=== PATIENT | female | born 1970 | race Two or more races ===

== ENCOUNTER 2019-09-10 16:01 | Emergency (ER) | payer SELFPAY ==
[~2019-09-10] VITALS: Ht 157.5 cm; Wt 70.0 kg
--- NOTE | 2019-09-10 16:25 | PHYS DOC ---
Adult General Chief Complaint Chief Complaint: ABDOMINAL PAIN [facility] HPI Patient is a 49 year old female who presents with left sided abdominal pain that has been ongoing for several days. The patient reports a subjective fever. The patient denies nausea, vomiting, diarrhea. Denies any history of diverticulitis, or denies any history of major abdominal problems or surgeries. Complete ROS were reviewed and found to be within normal limits, except as documented in the HPI (SOILA BUSH APRN) Current Medications Current Medications Current Medications Medications (Trade) Dose Ordered Sig/Martin Start Time Stop Time Status Last Admin Dose Admin Fentanyl Citrate (Fentanyl 2ml Vial) 50 mcg 1X ONCE 09/10/19 16:30 09/10/19 16:31 DC 09/10/19 17:20 50 MCG Info (CONTRAST GIVEN -- Rx MONITORING) 1 each PRN DAILY PRN 09/10/19 17:00 09/10/19 19:48 DC Iohexol (Omnipaque 300 Mg/ml) 60 ml 1X ONCE 09/10/19 17:00 09/10/19 17:01 DC 09/10/19 17:12 60 ML Ondansetron HCl (Zofran) 4 mg 1X ONCE 09/10/19 16:30 09/10/19 16:31 DC 09/10/19 17:20 4 MG Sodium Chloride 1,000 ml @ 1,000 mls/hr 1X ONCE 09/10/19 16:30 09/10/19 17:29 DC 09/10/19 17:20 1,000 MLS/HR (JENNIFER COOLEY MD) Allergies Allergies Allergies Coded Allergies Type Severity Reaction Last Updated Verified No Known Drug Allergies 09/10/19 No (JENNIFER COOLEY MD) Physical Exam Physical Exam Constitutional: Well developed, well nourished, no acute distress, non-toxic appearance. [] HENT: Normocephalic, atraumatic, bilateral external ears normal, oropharynx moist, no oral exudates, nose normal. [] Eyes: PERRLA, EOMI, conjunctiva normal, no discharge. [] Neck: Normal range of motion, no tenderness, supple, no stridor. [] Cardiovascular:Heart rate regular rhythm, no murmur [] Lungs & Thorax: Bilateral breath sounds clear to auscultation [] Abdomen: Bowel sounds normal, soft, left sided abdominal tenderness of palpation, no guarding, no masses, no pulsatile masses. [] Skin: Warm, dry, no erythema, no rash. [] Neurologic: Alert and oriented X 3, normal motor function, normal sensory function, no focal deficits noted. [] Psychologic: Affect normal, judgement normal, mood normal. [] (SOILA BUSH APRN) Current Patient Data Vital Signs Vital Signs Date Time Temp Pulse Resp B/P (MAP) Pulse Ox O2 Delivery O2 Flow Rate FiO2 09/10/19 19:24 56 14 121/70 (87) 99 Room Air 09/10/19 16:27 98.1 98.1 (JENNIFER COOLEY MD) Lab Values Laboratory Tests Test 09/10/19 16:16 09/10/19 16:22 09/10/19 16:27 Urine Collection Type Unknown Urine Color Yellow Urine Clarity Clear Urine pH 5.0 Urine Specific [place] 1.015 Urine Protein Negative mg/dL (NEG-TRACE) Urine Glucose (UA) Negative mg/dL (NEG) Urine Ketones (Stick) Negative mg/dL (NEG) Urine Blood Moderate (NEG) Urine Nitrite Negative (NEG) Urine Bilirubin Negative (NEG) Urine Urobilinogen Dipstick 0.2 mg/dL (0.2 mg/dL) Urine Leukocyte Esterase Negative (NEG) Urine RBC Occ /HPF (0-2) Urine WBC Occ /HPF (0-4) Urine Bacteria 0 /HPF (0-FEW) Urine Mucus Slight /LPF POC Urine HCG, Qualitative Hcg negative (Negative) White Blood Count 9.7 x10^3/uL (4.0-11.0) Red Blood Count 4.33 x10^6/uL (3.50-5.40) Hemoglobin 11.7 g/dL (12.0-15.5) L Hematocrit 35.4 % (36.0-47.0) L Mean Corpuscular Volume 82 fL (79-100) Mean Corpuscular Hemoglobin 27 pg (25-35) Mean Corpuscular Hemoglobin Concent 33 g/dL (31-37) Red Cell Distribution Width 13.4 % (11.5-14.5) Platelet Count 265 x10^3/uL (140-400) Neutrophils (%) (Auto) 46 % (31-73) Lymphocytes (%) (Auto) 39 % (24-48) Monocytes (%) (Auto) 7 % (0-9) Eosinophils (%) (Auto) 7 % (0-3) H Basophils (%) (Auto) 2 % (0-3) Neutrophils # (Auto) 4.4 x10^3/uL (1.8-7.7) Lymphocytes # (Auto) 3.8 x10^3/uL (1.0-4.8) Monocytes # (Auto) 0.6 x10^3/uL (0.0-1.1) Eosinophils # (Auto) 0.7 x10^3/uL (0.0-0.7) Basophils # (Auto) 0.2 x10^3/uL (0.0-0.2) Sodium Level 142 mmol/L (136-145) Potassium Level 4.0 mmol/L (3.5-5.1) Chloride Level 105 mmol/L (98-107) Carbon Dioxide Level 27 mmol/L (21-32) Anion Gap 10 (6-14) Blood Urea Nitrogen 23 mg/dL (7-20) H Creatinine 1.1 mg/dL (0.6-1.0) H Estimated GFR (Cockcroft-Gault) 52.8 BUN/Creatinine Ratio 21 (6-20) H Glucose Level 84 mg/dL (70-99) Calcium Level 9.1 mg/dL (8.5-10.1) Total Bilirubin 0.2 mg/dL (0.2-1.0) Aspartate Amino Transferase (AST) 19 U/L (15-37) Alanine Aminotransferase (ALT) 21 U/L (14-59) Alkaline Phosphatase 95 U/L (46-116) Total Protein 7.7 g/dL (6.4-8.2) Albumin 3.7 g/dL (3.4-5.0) Albumin/Globulin Ratio 0.9 (1.0-1.7) L Lipase 179 U/L (73-393) Laboratory Tests 09/10/19 16:27 Laboratory Tests 09/10/19 16:27 (JENNIFER COOLEY MD) Lab Values Laboratory Tests Test 09/10/19 16:16 09/10/19 16:22 09/10/19 16:27 Urine Collection Type Unknown Urine Color Yellow Urine Clarity Clear Urine pH 5.0 Urine Specific [place] 1.015 Urine Protein Negative mg/dL (NEG-TRACE) Urine Glucose (UA) Negative mg/dL (NEG) Urine Ketones (Stick) Negative mg/dL (NEG) Urine Blood Moderate (NEG) Urine Nitrite Negative (NEG) Urine Bilirubin Negative (NEG) Urine Urobilinogen Dipstick 0.2 mg/dL (0.2 mg/dL) Urine Leukocyte Esterase Negative (NEG) Urine RBC Occ /HPF (0-2) Urine WBC Occ /HPF (0-4) Urine Bacteria 0 /HPF (0-FEW) Urine Mucus Slight /LPF POC Urine HCG, Qualitative Hcg negative (Negative) White Blood Count 9.7 x10^3/uL (4.0-11.0) Red Blood Count 4.33 x10^6/uL (3.50-5.40) Hemoglobin 11.7 g/dL (12.0-15.5) L Hematocrit 35.4 % (36.0-47.0) L Mean Corpuscular Volume 82 fL (79-100) Mean Corpuscular Hemoglobin 27 pg (25-35) Mean Corpuscular Hemoglobin Concent 33 g/dL (31-37) Red Cell Distribution Width 13.4 % (11.5-14.5) Platelet Count 265 x10^3/uL (140-400) Neutrophils (%) (Auto) 46 % (31-73) Lymphocytes (%) (Auto) 39 % (24-48) Monocytes (%) (Auto) 7 % (0-9) Eosinophils (%) (Auto) 7 % (0-3) H Basophils (%) (Auto) 2 % (0-3) Neutrophils # (Auto) 4.4 x10^3/uL (1.8-7.7) Lymphocytes # (Auto) 3.8 x10^3/uL (1.0-4.8) Monocytes # (Auto) 0.6 x10^3/uL (0.0-1.1) Eosinophils # (Auto) 0.7 x10^3/uL (0.0-0.7) Basophils # (Auto) 0.2 x10^3/uL (0.0-0.2) Sodium Level 142 mmol/L (136-145) Potassium Level 4.0 mmol/L (3.5-5.1) Chloride Level 105 mmol/L (98-107) Carbon Dioxide Level 27 mmol/L (21-32) Anion Gap 10 (6-14) Blood Urea Nitrogen 23 mg/dL (7-20) H Creatinine 1.1 mg/dL (0.6-1.0) H Estimated GFR (Cockcroft-Gault) 52.8 BUN/Creatinine Ratio 21 (6-20) H Glucose Level 84 mg/dL (70-99) Calcium Level 9.1 mg/dL (8.5-10.1) Total Bilirubin 0.2 mg/dL (0.2-1.0) Aspartate Amino Transferase (AST) 19 U/L (15-37) Alanine Aminotransferase (ALT) 21 U/L (14-59) Alkaline Phosphatase 95 U/L (46-116) Total Protein 7.7 g/dL (6.4-8.2) Albumin 3.7 g/dL (3.4-5.0) Albumin/Globulin Ratio 0.9 (1.0-1.7) L Lipase 179 U/L (73-393) Laboratory Tests 09/10/19 16:27 Laboratory Tests 09/10/19 16:27 (SOILA BUSH APRN) EKG EKG [] (SOILA BUSH APRN) Radiology/Procedures Radiology/Procedures [facility] [address] [place] [address] IMAGING REPORT Signed PATIENT: ADRIAN GEE AACCOUNT: [id number] : 1970 LOCATION: ER AGE: 49 SEX: F EXAM STATUS: REG ER ORD. PHYSICIAN: SOILA BUSH APRN REASON: hyperdense or hyperenhancing right upper pole of kidney, abnormal CT, PROCEDURE: ABDOMEN COMPLETE Exam: Ultrasound abdomen complete Indication: Hyperdense cyst in the right upper kidney Technique: Real-time grayscale and color Doppler images of the head were obtained by the department director park. Comparisons: CT same day FINDINGS: Innumerable cysts are noted throughout the liver. Hepatopedal flow within the portal vein. Gallbladder is contracted. No sonographic Lopez sign. Common bile duct measures 4 mm in diameter. Right kidney measures 13.3 cm in length. Majority of the renal parenchyma is replaced with cysts. Corresponding to the abnormality on CT there is a hypoechoic rounded structure without internal flow. Left kidney measures 14.5 cm in length. Majority of the renal parenchyma is replaced with cysts. No hydronephrosis. Pancreas is not well seen. Spleen measures at least 10.6 cm in length. Visualized portions of aorta and IVC are unremarkable. IMPRESSION: 1. Corresponding to the abnormality on CT at the upper pole of the right kidney there is a 4.5 cm hypoechoic rounded structure. While no internal flow is identified this cannot be definitively characterized on ultrasound as a benign cyst based off of its appearance. The differential includes a hemorrhagic cyst which is still favored rather than a hypovascular mass. Nonemergent Renal protocol CT or MRI can better evaluate. 2. Findings of polycystic kidney disease with numerous renal and hepatic cysts. Electronically signed by: Barrington Berger MD (09/10/2019 7:17 PM) [facility] DICTATED and SIGNED BY: BARRINGTON BERGER MD DATE: 09/10/191916 [][facility] [address] [place] [address] IMAGING REPORT Signed PATIENT: ADRIAN GEE AACCOUNT: [id number] : 1970 LOCATION: ER AGE: 49 SEX: F EXAM STATUS: REG ER ORD. PHYSICIAN: SOILA BUSH APRN REASON: left sided abdominal pain PROCEDURE: CT ABD PELV W/ IV CONTRST ONLY EXAM: CT Abdomen and Pelvis with IV contrast CLINICAL HISTORY: left sided abdominal pain. COMPARISON: none TECHNIQUE: Helical CT of the abdomen and pelvis was performed following the administration of IV contrast. Axial, coronal and sagittal reformatted images were generated. ---PQRS compliance statement - One or more of the following individualized dose reduction techniques were utilized for this study: 1. Automated exposure control 2. Adjustment of the mA and/or kV according to patient size 3. Use of iterative reconstruction technique--- FINDINGS: Lower chest: Lung bases are essentially clear. Abdomen and pelvis: Liver and biliary system: Numerous hepatic cystic lesions are seen, likely from polycystic kidney disease. Gallbladder is normal. No biliary ductal dilatation. Spleen: Unremarkable Pancreas: Unremarkable Adrenal glands: Unremarkable Kidneys: Symmetric nephrograms. Multiple bilateral renal cystic lesions are seen. In the upper pole of the right kidney a 3.5 x 3.2 cm hypodense lesion measures approximately 58 Hounsfield units. No hydronephrosis or hydroureter. Lymph nodes/retroperitoneum: No abdominal or pelvic lymphadenopathy. Vessels: Aorta is normal in caliber. Bowel/Peritoneal cavity: Moderate colonic stool content is seen. No small bowel dilatation to suggest bowel obstruction. Colonic diverticula are seen. No evidence for acute diverticulitis. Appendix is is not convincingly seen although no significant right lower quadrant inflammatory changes are seen. No abdominal or pelvic ascites. Calcified uterine fibroid. Abdominal wall: Fat-containing periumbilical hernia is seen. Prominent fat-containing periumbilical hernia. Bladder: Bladder is unremarkable. Bones: Degenerative changes of the spine are seen. No aggressive osseous lesion is seen. IMPRESSION: 1. Numerous hepatic and renal cysts, likely from polycystic kidney disease. Of note, there is a hyperdense or hyperenhancing right upper pole renal lesion, possibly hemorrhagic or proteinaceous cyst however solid mass is not excluded. This can be correlated with recent prior imaging if available, otherwise ultrasound or MRI is recommended to exclude solid mass. 2. Colonic diverticula are seen. No evidence for acute diverticulitis 3. No bowel obstruction. 4. Gallbladder is normal without biliary ductal dilatation. 5. Prominent fat-containing periumbilical hernia is seen. Electronically signed by: Talon Rivers MD (09/10/2019 5:29 PM) [facility] DICTATED and SIGNED BY: TALON RIVERS MD DATE: 09/10/191728 (SOILA BUSH APRN) Course & Med Decision Making Course & Med Decision Making Pertinent Labs and Imaging studies reviewed. (See chart for details) Will get labs, urine, and CT. Will give supportive care. IMPRESSION: 1. Numerous hepatic and renal cysts, likely from polycystic kidney disease. Of note, there is a hyperdense or hyperenhancing right upper pole renal lesion, possibly hemorrhagic or proteinaceous cyst however solid mass is not excluded. This can be correlated with recent prior imaging if available, otherwise ultrasound or MRI is recommended to exclude solid mass. 2. Colonic diverticula are seen. No evidence for acute diverticulitis 3. No bowel obstruction. 4. Gallbladder is normal without biliary ductal dilatation. 5. Prominent fat-containing periumbilical hernia is seen. Electronically signed by: Talon Rivers MD (09/10/2019 5:29 PM) [facility] Will get Ultrasound to exclude solid mass. Labs: Unremarkable for acute changes. UA: Has blood. Will have follow up with primary care doctor and [facility] to have another UA performed to make sure the hematuria resolves. (SOILA BUSH APRN) Course & Med Decision Making I was not involved in the care of this patient after 1800 on 09/10/2019. (JENNIFER COOLEY MD) Dragon Disclaimer Dragon Disclaimer This electronic medical record was generated, in whole or in part, using a voice recognition dictation system. (SOILA BUSH APRN) Departure Departure Impression: Primary Impression: Abdominal pain Additional Impressions: Periumbilical hernia Hematuria Disposition: 01 HOME, SELF-CARE Condition: STABLE Referrals: NO PCP (PCP) CATRACHO LUBIN MD, SARASWATHI MD Additional Instructions: Thank you for visiting [facility]. We appreciate you trusting us with your care. If any additional problems come up don't hesitate to return to visit us. Please follow up with your primary care provider so they can plan additional care if needed and know about the problem that you had. If symptoms worsen come back to the Emergency Department. Any concerning symptoms that start such as chest pain, shortness of air, weakness or numbness on one side of the body, running high fevers or any other concerning symptoms return to the ER. Please follow up with your primary care doctor regarding abnormal CT and periumbilical hernia. Will also refer to general surgery, and [facility]. Please have your urine rechecked to make sure blood resolves. Problem Qualifiers Primary Impression: Abdominal pain Abdominal location: unspecified location Qualified Codes: R10.9 - Unspecified abdominal pain Additional Impressions: Hematuria Hematuria type: unspecified type Qualified Codes: R31.9 - Hematuria, unspecified SOILA BUSH APRN Sep 10, 2019 16:25 JENNIFER COOLEY MD Sep 11, 2019 07:22
[2019-09-10] MEDS ORDERED: fentaNYL PF VIAL 100 MCG/2 ML VIAL IV ONE (16:30)
[2019-09-10] MEDS ORDERED: ONDANSETRON PF 4 MG/2 ML VIAL. IV ONE (16:30)
[2019-09-10] MEDS ORDERED: IV NORMAL SALINE 1000ML BAG 1,000 ML IV ONE (16:30)
[2019-09-10 16:31] LABS: BILIRUBIN,URINE NEGATIVE (NEG); CLARITY,URINE CLEAR; COLOR,URINE YELLOW; NITRITE,URINE NEGATIVE (NEG); PROTEIN,URINE NEGATIVE (NEG-TRACE); UROBILINOGEN,URINE 0.2 mg/dL (0.2 mg/dL)
[2019-09-10 16:33] LABS: BASO # 0.2 x10^3/uL (0.0-0.2); BASO % 2 % (0-3); EOS # 0.7 x10^3/uL (0.0-0.7); EOS % 7 % (0-3); HEMATOCRIT 35.4 % (36.0-47.0); HEMOGLOBIN 11.7 g/dL (12.0-15.5); LYMPH # 3.8 x10^3/uL (1.0-4.8); LYMPH % 39 % (24-48); MEAN CORPUSCULAR HEMOGLOBIN 27 pg (25-35); MEAN CORPUSCULAR HGB CONC 33 g/dL (31-37); MEAN CORPUSCULAR VOLUME 82 fL (79-100); MONO # 0.6 x10^3/uL (0.0-1.1); MONO % 7 % (0-9); NEUT # 4.4 x10^3/uL (1.8-7.7); NEUT % 46 % (31-73); PLATELET COUNT 265 x10^3/uL (140-400); RED BLOOD COUNT 4.33 x10^6/uL (3.50-5.40); RED CELL DISTRIBUTION WIDTH 13.4 % (11.5-14.5); WHITE BLOOD COUNT 9.7 x10^3/uL (4.0-11.0)
[2019-09-10 16:35] LABS: BACTERIA,URINE 0 /HPF (0-FEW); RBC,URINE OCC /HPF (0-2); WBC,URINE OCC /HPF (0-4)
[2019-09-10 16:48] LABS: CALCIUM 9.1 mg/dL (8.5-10.1); CREATININE 1.1 mg/dL (0.6-1.0); GFR 52.8
[2019-09-10] MEDS ORDERED: IOHEXOL 300 MG/ML 100ML VIAL. IV ONE (17:00)
[2019-09-10] MEDS ORDERED: CONTRAST GIVEN. MC PRN (17:00)
[2019-09-10 17:02] LABS: ALBUMIN 3.7 g/dL (3.4-5.0); ALBUMIN/GLOBULIN RATIO 0.9 (1.0-1.7); TOTAL BILIRUBIN 0.2 mg/dL (0.2-1.0); TOTAL PROTEIN 7.7 g/dL (6.4-8.2)
--- NOTE | 2019-09-10 17:32 | RAD ---
EXAM: CT Abdomen and Pelvis with IV contrast CLINICAL HISTORY: left sided abdominal pain. COMPARISON: none TECHNIQUE: Helical CT of the abdomen and pelvis was performed following the administration of IV contrast. Axial, coronal and sagittal reformatted images were generated. ---PQRS compliance statement - One or more of the following individualized dose reduction techniques were utilized for this study: 1. Automated exposure control 2. Adjustment of the mA and/or kV according to patient size 3. Use of iterative reconstruction technique--- FINDINGS: Lower chest: Lung bases are essentially clear. Abdomen and pelvis: Liver and biliary system: Numerous hepatic cystic lesions are seen, likely from polycystic kidney disease. Gallbladder is normal. No biliary ductal dilatation. Spleen: Unremarkable Pancreas: Unremarkable Adrenal glands: Unremarkable Kidneys: Symmetric nephrograms. Multiple bilateral renal cystic lesions are seen. In the upper pole of the right kidney a 3.5 x 3.2 cm hypodense lesion measures approximately 58 Hounsfield units. No hydronephrosis or hydroureter. Lymph nodes/retroperitoneum: No abdominal or pelvic lymphadenopathy. Vessels: Aorta is normal in caliber. Bowel/Peritoneal cavity: Moderate colonic stool content is seen. No small bowel dilatation to suggest bowel obstruction. Colonic diverticula are seen. No evidence for acute diverticulitis. Appendix is is not convincingly seen although no significant right lower quadrant inflammatory changes are seen. No abdominal or pelvic ascites. Calcified uterine fibroid. Abdominal wall: Fat-containing periumbilical hernia is seen. Prominent fat-containing periumbilical hernia. Bladder: Bladder is unremarkable. Bones: Degenerative changes of the spine are seen. No aggressive osseous lesion is seen. IMPRESSION: 1. Numerous hepatic and renal cysts, likely from polycystic kidney disease. Of note, there is a hyperdense or hyperenhancing right upper pole renal lesion, possibly hemorrhagic or proteinaceous cyst however solid mass is not excluded. This can be correlated with recent prior imaging if available, otherwise ultrasound or MRI is recommended to exclude solid mass. 2. Colonic diverticula are seen. No evidence for acute diverticulitis 3. No bowel obstruction. 4. Gallbladder is normal without biliary ductal dilatation. 5. Prominent fat-containing periumbilical hernia is seen. Electronically signed by: Talon Ferro MD (09/10/2019 5:29 PM) [facility]
--- NOTE | 2019-09-10 19:20 | RAD ---
Exam: Ultrasound abdomen complete Indication: Hyperdense cyst in the right upper kidney Technique: Real-time grayscale and color Doppler images of the head were obtained by the department brusher machine. Comparisons: CT same day FINDINGS: Innumerable cysts are noted throughout the liver. Hepatopedal flow within the portal vein. Gallbladder is contracted. No sonographic Lopez sign. Common bile duct measures 4 mm in diameter. Right kidney measures 13.3 cm in length. Majority of the renal parenchyma is replaced with cysts. Corresponding to the abnormality on CT there is a hypoechoic rounded structure without internal flow. Left kidney measures 14.5 cm in length. Majority of the renal parenchyma is replaced with cysts. No hydronephrosis. Pancreas is not well seen. Spleen measures at least 10.6 cm in length. Visualized portions of aorta and IVC are unremarkable. IMPRESSION: 1. Corresponding to the abnormality on CT at the upper pole of the right kidney there is a 4.5 cm hypoechoic rounded structure. While no internal flow is identified this cannot be definitively characterized on ultrasound as a benign cyst based off of its appearance. The differential includes a hemorrhagic cyst which is still favored rather than a hypovascular mass. Nonemergent Renal protocol CT or MRI can better evaluate. 2. Findings of polycystic kidney disease with numerous renal and hepatic cysts. Electronically signed by: Barrington Tipton MD (09/10/2019 7:17 PM) [facility]
[2019-09-10 19:24] VITALS: BP 121/70
== END 2019-09-10 19:40 | disposition home or self-care (01) ==
LOC: ER 16:01
DX: K42.9 Umbilical hernia without obstruction or gangrene (principal); R31.9 Hematuria, unspecified; R50.9 Fever, unspecified; R00.2 Palpitations
CPT/HCPCS: 36415; 74177; 76700; 80053; 81001; 81025; 83690; 85025; 96374; 96375; 99285; J2405; J3010; J7030; Q9967; 33010; 36555

== ENCOUNTER → 2021-12-06 | Day surgery (SDC) | payer OTHER ==
[~2021-12-06] VITALS: Ht 152.4 cm; Wt 69.5 kg
[~2021-12-06] MED LIST: IV RINGERS,LACTATED 1000ML 1,000 ML IV SCH; LIDOCAINE 2% PF 5 ML VIAL. ONE; PROPOFOL 10 MG/ML (20ML) VIAL. IV ONE
[2021-12-06 10:41] VITALS: BP 141/84
[2021-12-06 12:05] VITALS: BP 141/92
--- NOTE | 2021-12-07 18:07 | PATHOLOGY ---
[facility] Accession Number: [id number] . 01 Material submitted: . PART A: small bowel - SMALL BOWEL BIOPSY PART B: stomach - ANTRUM AND BODY BIOPSY PART C: esophagus - DISTAL ESOPHAGUS BIOPSY. Modifiers: distal PART D: esophagus - MID ESOPHAGUS BIOPSY. Modifiers: mid PART E: cecum - CECAL POLYP . 01 Clinical history: . HEARTBURN/RLQ PAIN/DYSPHAGIA/SCREENING . 02 Diagnosis: A. Small bowel biopsies: - No diagnostic abnormalities. . B. Gastric biopsies, gastric body and gastric antrum: - Active chronic gastritis, moderate, with numerous Helicobacter organisms identified. . C. Esophageal biopsies, distal esophagus: - Reflux changes. . D. Esophageal biopsy, middle esophagus: - Segment of squamous esophageal mucosa showing no diagnostic abnormalities. . E. Colon biopsy, cecal polyp: - Prominent mucosal fold. . (JPM:dyan; 12/07/2021) [facility] 12/07/2021 1418 Local . 02 Comment: Sections of the small bowel biopsy reveal segments of duodenal and small intestinal mucosa. Where best oriented, the mucosal villi show no sprue-like changes or significant inflammatory changes. . Sections of the gastric biopsy reveal segments of gastric body and gastric antral mucosa showing congestion and moderate active chronic inflammation. A properly controlled immunoperoxidase stain for Helicobacter reveals numerous Helicobacter organisms. . Sections of the distal esophageal biopsy reveal segments of hyperplastic squamous esophageal mucosa, one of which has contiguous gastric mucosa showing moderate chronic inflammation. The findings are consistent with reflux changes. There is no evidence of Roberson's change, dysplasia or malignancy. . Sections of the middle esophageal biopsy reveal a segment of squamous esophageal mucosa showing no diagnostic abnormalities. . Sections of the cecal biopsy reveal a segment of colonic mucosa consistent with prominent mucosal fold. There are no adenomatous changes or evidence of malignancy. . (JPM:investment executive; 12/07/2021) . . . Special stain performed: Immunoperoxidase stain for Helicobacter on B1 . 02 Electronically signed: . Madhu Cross MD, Pathologist NPI- [id number] . 01 Gross description: . A. The specimen is received in formalin, labeled "Radha Fernandez Odin, small bowel biopsy". Received are three segments of pale howell tissue ranging in size from 0.3-0.4 cm in maximum dimensions. The specimen is submitted entirely in cassette A1. . B. The specimen is received in formalin, labeled "Radha Fernandez Odin, antrum and body biopsy". Received are four segments of pale howell tissue ranging in size from 0.3-0.4 cm in maximum dimensions. The specimen is submitted entirely in cassette B1. . C. The specimen is received in formalin, labeled "Radha Fernandez Odin, distal esophagus biopsy". Received are two segments of pale howell tissue measuring 0.3 and 0.4 cm in maximum dimensions. The specimen is submitted entirely in cassette C1. . D. The specimen is received in formalin, labeled "Radha Fernandez Odin, mid esophagus biopsy". Received is a segment of pale howell tissue measuring 0.3 cm in maximum dimensions. The specimen is submitted entirely in cassette D1. . E. The specimen is received in formalin, labeled "Radha Fernandez Odin, cecal polyp." Received is a segment of pale howell tissue measuring 0.4 cm in maximum dimensions. The specimen is submitted entirely in cassette E1. (CAA; 12/06/2021) [facility] 12/07/2021 1411 Local . 02 Pathologist provided ICD-10: K29.50, B96.81, K21.00 . 02 CPT . 587358, 570312, 398246, [id number], [id number], [id number] Specimen Comment: A courtesy copy of this report has been sent to [phone] Specimen Comment: Report sent to Specimen Comment: A duplicate report has been generated due to demographic updates. Performed at: 01 [facility] [address], [place] [id number] MD Tan Pineda MD Phone: [phone] Performed at: 02 [facility] [address] [place], [place] [id number] MD Madhu Cross MD Phone: [phone]
== END | disposition home or self-care (01) ==
LOC: ENDOS 09:58
PROVIDERS: ATTEND Internal Medicine Gastroenterology
DX: R10.11 Right upper quadrant pain (principal); R13.10 Dysphagia, unspecified; K21.00 Gastro-esophageal reflux disease with esophagitis, without bleeding; K29.50 Unspecified chronic gastritis without bleeding; B96.81 Helicobacter pylori [H. pylori] as the cause of diseases classified elsewhere; K64.0 First degree hemorrhoids; K63.5 Polyp of colon; K57.30 Diverticulosis of large intestine without perforation or abscess without bleeding; K55.20 Angiodysplasia of colon without hemorrhage; K63.89 Other specified diseases of intestine; K31.89 Other diseases of stomach and duodenum; Z79.899 Other long term (current) drug therapy; Z98.890 Other specified postprocedural states
CPT/HCPCS: 43239; 43450; 45380; J2704